=== PATIENT | male | born 2000 | race Caucasian/White ===

== ENCOUNTER 2025-05-21 18:28 | Emergency (ER) | payer SELFPAY ==
[2025-05-21 19:17] LABS: Bacteria/HPF None Seen HPF (None Seen); CAUTI Indications for Culture Pelvic or flank pain; Glucose, Urine (Dipstick) Normal (Negative); Leukocyte Negative Leu/uL (Negative); Protein, Urine (Dipstick) Negative (Neg-Trace); RBC/HPF None Seen HPF (0-3); Specific Gravity, Urine 1.014 (1.002-1.036); WBC/HPF 0-3 HPF (0-3)
[2025-05-21] MEDS ORDERED: cefTRIAXone (ROCEPHIN) 500 MG VIAL ONE (19:26)
[2025-05-21 19:33] LABS: Urine Culture Reflex No No
[2025-05-21 21:22] LABS: Chlam.trachomatis by PCR,Urine Not Detected (NotDetected); GC N.gonorrhoeae PCR,UrineVOID Not Detected (NotDetected)
== END 2025-05-21 19:33 | disposition home or self-care (01) ==
LOC: ERS 18:28
DX: N50.812 Left testicular pain (principal); F17.290 Nicotine dependence, other tobacco product, uncomplicated
CPT/HCPCS: 81001; 87491; 87591; 96372; 99283; J0696